=== PATIENT | female | born 1965 | race Two or more races ===

== ENCOUNTER → 2020-01-02 | Outpatient (CLI) | payer MEDICAID ==
[2020-01-02 10:41] LABS: Basophils # (auto) 0.1 10 ^3/uL (0-0.2); Eosinophils # (auto) 0.2 10 ^3/uL (0-0.8); Eosinophils % (auto) 3.9 % (0.0-7.0); Hematocrit 44.5 % (36.0-46.0); Hemoglobin 14.4 g/dL (12.2-16.2); Lymphocytes # (auto) 1.8 10 ^3/uL (0.4-5.4); Lymphocytes % (auto) 29.8 % (10.0-50.0); Mean Corpuscular Hemoglobin 29.2 pg (28.0-32.0); Mean Corpuscular Hgb Conc. 32.4 g/dL (32.0-36.0); Monocytes # (auto) 0.4 10 ^3/uL (0-1.3); Monocytes % (auto) 6.2 % (0.0-12.0); Neutrophils # (auto) 3.5 10 ^3/uL (1.6-8.6); Neutrophils % (auto) 59.1 % (37.0-80.0); Nucleated Red Blood Cells % 0.1 %; Platelet Count (auto) 259 10^3/uL (140-450); Red Blood Cells 4.94 10^6/uL (4.0-5.20); Red Cell Distribution Width 14.3 % (11.8-14.3)
[2020-01-02 10:48] LABS: Urine Bacteria NONE SEEN /hpf (None Seen); Urine Blood Negative /uL (Negative); Urine Specific Gravity 1.016 (1.001-1.035); Urine WBC <1 /hpf (0 - 5)
[2020-01-02 10:52] LABS: Albumin 3.4 g/dL (3.4-5.0); Potassium 4.7 mmol/L (3.5-5.1)
[2020-01-02 10:58] LABS: BUN/Creatinine Ratio 17.1; Bilirubin, Total 0.3 mg/dL (0.2-1.0); Calcium 9.2 mg/dL (8.5-10.1); Total Protein 7.5 g/dL (6.4-8.2)
[2020-01-03 05:10] LABS: RPR Non Reactive (Non Reactive)
== END | disposition home or self-care (01) ==
LOC: LAB 10:03
PROVIDERS: ATTEND Internal Medicine
DX: D68.9 Coagulation defect, unspecified (principal)
CPT/HCPCS: 36415; 80053; 81001; 85025; 86592; 87086

== ENCOUNTER → 2020-05-10 | Outpatient (CLI) | payer MEDICAID ==
[2020-05-10 08:48] LABS: Basophils # (auto) 0.1 10 ^3/uL (0-0.2); Eosinophils # (auto) 0.1 10 ^3/uL (0-0.8); Eosinophils % (auto) 1.8 % (0.0-7.0); Hematocrit 43.8 % (36.0-46.0); Hemoglobin 14.9 g/dL (12.2-16.2); Lymphocytes # (auto) 2.1 10 ^3/uL (0.4-5.4); Lymphocytes % (auto) 28.7 % (10.0-50.0); Mean Corpuscular Hemoglobin 29.8 pg (28.0-32.0); Mean Corpuscular Hgb Conc. 33.9 g/dL (32.0-36.0); Mean Corpuscular Volume 87.8 fL (80.0-100.0); Monocytes # (auto) 0.5 10 ^3/uL (0-1.3); Neutrophils # (auto) 4.5 10 ^3/uL (1.6-8.6); Neutrophils % (auto) 61.5 % (37.0-80.0); Nucleated Red Blood Cells % 0.1 %; Platelet Count (auto) 216 10^3/uL (140-450); Red Blood Cells 4.99 10^6/uL (4.0-5.20); Red Cell Distribution Width 14.9 % (11.8-14.3); White Blood Cell 7.3 10^3/uL (4.4-10.8)
[2020-05-10 09:14] LABS: Potassium 3.9 mmol/L (3.5-5.1)
[2020-05-10 09:23] LABS: Albumin 3.3 g/dL (3.4-5.0); BUN/Creatinine Ratio 17.5; Bilirubin, Direct 0.1 mg/dL (0-0.2); Bilirubin, Total 0.4 mg/dL (0.2-1.0); Calcium 8.6 mg/dL (8.5-10.1); Total Protein 7.2 g/dL (6.4-8.2)
[2020-05-10 09:24] LABS: INR 2.33 (0.9-1.15)
== END | disposition home or self-care (01) ==
LOC: LAB 08:06
PROVIDERS: ATTEND Internal Medicine Gastroenterology
DX: K64.9 Unspecified hemorrhoids (principal); R94.5 Abnormal results of liver function studies
CPT/HCPCS: 36415; 80053; 80076; 82728; 84443; 85025; 85610; 86038

== ENCOUNTER 2020-10-26 15:12 | Inpatient (IN) | payer MEDICAID ==
[~2020-10-26] VITALS: Ht 154.9 cm; Wt 156.0 kg
[2020-10-26] MEDS ORDERED: methylPREDNISolone SOD SUCC 125 MG/2 ML VL IV ONE (15:30)
[2020-10-26] MEDS ORDERED: ASCORBIC ACID 500 MG TAB PO ONE (15:30)
[2020-10-26] MEDS ORDERED: ZINC SULFATE 220mg CAP or TAB PO ONE (15:30)
[2020-10-26] MEDS ORDERED: CHOLECALCIFEROL (VITD3) 2,000 UNIT CAP/TAB PO ONE (15:30)
[2020-10-26 16:34] LABS: Basophils # (auto) 0 10 ^3/uL (0-0.2); Basophils % (auto) 0.8 % (0.0-2.0); Eosinophils # (auto) 0 10 ^3/uL (0-0.8); Eosinophils % (auto) 0.1 % (0.0-7.0); Hematocrit 46.1 % (36.0-46.0); Hemoglobin 15.7 g/dL (12.2-16.2); Lymphocytes # (auto) 1.1 10 ^3/uL (0.4-5.4); Lymphocytes % (auto) 23.6 % (10.0-50.0); Mean Corpuscular Hemoglobin 30.3 pg (28.0-32.0); Mean Corpuscular Hgb Conc. 34.1 g/dL (32.0-36.0); Mean Corpuscular Volume 88.9 fL (80.0-100.0); Monocytes # (auto) 0.6 10 ^3/uL (0-1.3); Monocytes % (auto) 11.6 % (0.0-12.0); Neutrophils # (auto) 3.1 10 ^3/uL (1.6-8.6); Neutrophils % (auto) 63.9 % (37.0-80.0); Nucleated Red Blood Cells % 0.2 %; Red Blood Cells 5.19 10^6/uL (4.0-5.20); Red Cell Distribution Width 14.1 % (11.8-14.3); White Blood Cell 4.8 10^3/uL (4.4-10.8)
[2020-10-26 16:52] LABS: Albumin 3.2 g/dL (3.4-5.0); Anion Gap 7 (5-15); Blood Urea Nitrogen 9 mg/dL (7-18); Calcium 8.4 mg/dL (8.5-10.1); Carbon Dioxide 25 mmol/L (21-32); Chloride 109 mmol/L (98-107); Glucose 104 mg/dL (74-106); Potassium 3.9 mmol/L (3.5-5.1); Sodium 141 mmol/L (136-145)
[2020-10-26 17:01] LABS: Alanine Aminotransferase 95 U/L (13-56); Alkaline Phosphatase 124 U/L (45-117); Aspartate Aminotransferase 65 U/L (15-37); BUN/Creatinine Ratio 11.4; Bilirubin, Total 0.7 mg/dL (0.2-1.0); CRP High Sensitivity 5.13 mg/dL (< 0.3); GFR African American 98 mL/min; GFR Non-African American 81 mL/min; Total Protein 8.1 g/dL (6.4-8.2)
[2020-10-26] MEDS ORDERED: AZITHROMYCIN 500MG/ 250ML 250 ML IV ONE (20:00)
[2020-10-26] MEDS ORDERED: ALUM & MAG HYDROX-SIMETH LIQ(MAALOX) 30 ML PO PRN (20:45)
[2020-10-26] MEDS ORDERED: ONDANSETRON HCL 4 MG/2 ML VIAL IV PRN (20:45)
[2020-10-26] MEDS ORDERED: SODIUM CHLORIDE 0.9% 1,000 ML IV SCH (20:45)
[2020-10-26] MEDS ORDERED: MORPHINE SULF INJ 2 MG/ML SYRINGE 1ML IV PRN ×2 (20:45→23:45)
[2020-10-26] MEDS ORDERED: DOCUSATE SOD 100 MG CAP PO PRN (20:45)
[2020-10-26] MEDS ORDERED: REMDESIVIR PER PHARMACY 0 ML IV SCH (20:45)
[2020-10-26] MEDS ORDERED: ACETAMINOPHEN 500 MG TAB PO PRN (20:45)
[2020-10-26] MEDS ORDERED: HYDROcodone-ACET 5/325MG TAB PO PRN (20:45)
[2020-10-26] MEDS ORDERED: TEMAZEPAM 15 MG CAP PO PRN (22:00)
[2020-10-26] MEDS ORDERED: BUDESONIDE (INHALATION) 180 MCG IH IN SCH (22:00)
[2020-10-26] MEDS ORDERED: ENOXAPARIN SOD 40 MG/0.4 ML SYRINGE SC SCH (22:00)
[2020-10-26] MEDS ORDERED: REMDESIVIR 200 MG in NS 210ml LOADING DOSE ADULT IV ONE (23:00)
[2020-10-26] MEDS ORDERED: NITROGLYCERIN 0.4 MG SL TAB SL PRN (23:45)
[2020-10-26 23:51] VITALS: BP 149/87
[2020-10-26] MEDS: ALBUTEROL SULF HFA 90MCG INH 200DOSE IN SCH (23:59)
[2020-10-27] MEDS: ONDANSETRON HCL 4 MG/2 ML VIAL IV PRN ×3 (00:38→23:48)
[2020-10-27 06:37] LABS: Basophils # (auto) 0 10 ^3/uL (0-0.2); Basophils % (auto) 0.4 % (0.0-2.0); Eosinophils # (auto) 0 10 ^3/uL (0-0.8); Hematocrit 44.6 % (36.0-46.0); Hemoglobin 15.2 g/dL (12.2-16.2); Lymphocytes # (auto) 0.7 10 ^3/uL (0.4-5.4); Lymphocytes % (auto) 16.5 % (10.0-50.0); Mean Corpuscular Hemoglobin 30.3 pg (28.0-32.0); Mean Corpuscular Volume 89.1 fL (80.0-100.0); Monocytes # (auto) 0.2 10 ^3/uL (0-1.3); Neutrophils # (auto) 3.2 10 ^3/uL (1.6-8.6); Neutrophils % (auto) 79.1 % (37.0-80.0); Nucleated Red Blood Cells % 0.1 %; Red Blood Cells 5.01 10^6/uL (4.0-5.20); White Blood Cell 4.1 10^3/uL (4.4-10.8)
[2020-10-27 06:54] LABS: Potassium 4.1 mmol/L (3.5-5.1)
[2020-10-27 06:59] LABS: BUN/Creatinine Ratio 13.9; Calcium 8.4 mg/dL (8.5-10.1)
[2020-10-27] MEDS: ALBUTEROL SULF HFA 90MCG INH 200DOSE IN SCH ×6 (08:13→23:53)
[2020-10-27] MEDS: cefTRIAXone 1GM/50ML D5W 50 ML IV SCH (09:27)
[2020-10-27] MEDS ORDERED: ZINC SULFATE 220mg CAP or TAB PO SCH (10:00)
[2020-10-27] MEDS ORDERED: FLORASTOR (S. BOULARDII) 250 MG CAP PO SCH (10:00)
[2020-10-27] MEDS ORDERED: DexAMETHasone SOD PHOS 10MG/1ML VIAL INJ IV SCH (10:00)
[2020-10-27] MEDS ORDERED: AZITHROMYCIN 500MG/ 250ML 250 ML IV SCH (10:00)
[2020-10-27] MEDS ORDERED: ASCORBIC ACID 1,000 MG TAB PO SCH (10:00)
[2020-10-27] MEDS ORDERED: REMDESIVIR PER PHARMACY 0 ML IV SCH (11:00)
[2020-10-27] MEDS: AZITHROMYCIN 500MG/ 250ML 250 ML IV SCH (11:16)
[2020-10-27] MEDS: DexAMETHasone SOD PHOS 10MG/1ML VIAL INJ IV SCH (11:16)
[2020-10-27] MEDS: ZINC SULFATE 220mg CAP or TAB PO SCH (11:17)
[2020-10-27] MEDS: APIXABAN 5 MG TAB PO SCH ×2 (11:17→22:00)
[2020-10-27] MEDS: CHOLECALCIFEROL (VITD3) 2,000 UNIT CAP/TAB PO SCH (11:17)
[2020-10-27] MEDS: ASCORBIC ACID 500 MG TAB PO SCH ×2 (11:17→22:00)
[2020-10-27] MEDS ORDERED: REMDESIVIR 100mg 100 MG in SODIUM CHL 0.9% 230 ML IV SCH (15:00)
[2020-10-27] MEDS: REMDESIVIR 100mg 100 MG in SODIUM CHL 0.9% 230 ML IV SCH (15:02)
[2020-10-27 22:51] VITALS: BP 126/71
[2020-10-28] MEDS ORDERED: APIX5TAB PO (00:25)
[2020-10-28] MEDS: ACETAMINOPHEN 325 MG TAB PO PRN (00:54)
[2020-10-28 05:00] VITALS: BP 101/63
[2020-10-28] MEDS: ALBUTEROL SULF HFA 90MCG INH 200DOSE IN SCH ×4 (06:00→22:40)
[2020-10-28 06:45] LABS: Albumin 2.7 g/dL (3.4-5.0); Calcium 8.2 mg/dL (8.5-10.1); Potassium 4.1 mmol/L (3.5-5.1)
[2020-10-28 06:49] LABS: BUN/Creatinine Ratio 19.7; Bilirubin, Total 0.4 mg/dL (0.2-1.0); Total Protein 6.7 g/dL (6.4-8.2)
[2020-10-28 07:37] LABS: Urine Bacteria FEW /hpf (None Seen); Urine Blood Negative /uL (Negative); Urine Mucus FEW (None Seen); Urine WBC 5 /hpf (0 - 5)
[2020-10-28 09:00] VITALS: BP 130/68
[2020-10-28] MEDS: DexAMETHasone SOD PHOS 10MG/1ML VIAL INJ IV SCH (09:38)
[2020-10-28] MEDS: CHOLECALCIFEROL (VITD3) 2,000 UNIT CAP/TAB PO SCH (09:39)
[2020-10-28] MEDS: APIXABAN 5 MG TAB PO SCH ×2 (09:39→22:05)
[2020-10-28] MEDS: ZINC SULFATE 220mg CAP or TAB PO SCH (09:39)
[2020-10-28] MEDS: ASCORBIC ACID 500 MG TAB PO SCH ×2 (09:39→22:05)
[2020-10-28 13:00] VITALS: BP 103/64
[2020-10-28] MEDS: AZITHROMYCIN 500MG/ 250ML 250 ML IV SCH (15:05)
[2020-10-28 17:00] VITALS: BP 112/73
[2020-10-28] MEDS: REMDESIVIR 100mg 100 MG in SODIUM CHL 0.9% 230 ML IV SCH (17:13)
[2020-10-28] MEDS: cefTRIAXone 1GM/50ML D5W 50 ML IV SCH (18:30)
[2020-10-28] MEDS ORDERED: TEMAZEPAM 15 MG CAP PO ONE (21:45)
[2020-10-28 22:02] VITALS: BP 116/61
[2020-10-29] VITALS (7 sets, daily range): BP systolic 91–118; BP diastolic 47–62
[2020-10-29] MEDS: ALBUTEROL SULF HFA 90MCG INH 200DOSE IN SCH ×2 (07:51→19:39)
[2020-10-29] MEDS: cefTRIAXone 1GM/50ML D5W 50 ML IV SCH (09:22)
[2020-10-29] MEDS: CHOLECALCIFEROL (VITD3) 2,000 UNIT CAP/TAB PO SCH (09:23)
[2020-10-29] MEDS: ASCORBIC ACID 500 MG TAB PO SCH ×2 (09:23→22:02)
[2020-10-29] MEDS: APIXABAN 5 MG TAB PO SCH ×2 (09:23→22:01)
[2020-10-29] MEDS: ZINC SULFATE 220mg CAP or TAB PO SCH (09:23)
[2020-10-29] MEDS: DexAMETHasone SOD PHOS 10MG/1ML VIAL INJ IV SCH (09:23)
[2020-10-29 10:19] LABS: Albumin 2.6 g/dL (3.4-5.0); Calcium 8.1 mg/dL (8.5-10.1); Potassium 3.8 mmol/L (3.5-5.1)
[2020-10-29] MEDS: AZITHROMYCIN 500MG/ 250ML 250 ML IV SCH (10:20)
[2020-10-29 10:22] LABS: BUN/Creatinine Ratio 21.6; Bilirubin, Total 0.3 mg/dL (0.2-1.0); Total Protein 6.5 g/dL (6.4-8.2)
[2020-10-29] MEDS: REMDESIVIR 100mg 100 MG in SODIUM CHL 0.9% 230 ML IV SCH (15:00)
[2020-10-29] MEDS ORDERED: ALBUTEROL SULF HFA 90MCG INH 200DOSE IN PRN (20:45)
[2020-10-29] MEDS ORDERED: TEMAZEPAM 15 MG CAP PO ONE (21:30)
[2020-10-30] MEDS ORDERED: TEMAZEPAM 15 MG CAP PO PRN (05:00)
[2020-10-30 05:08] VITALS: BP 109/63
[2020-10-30 06:37] LABS: Albumin 2.4 g/dL (3.4-5.0); Calcium 8.1 mg/dL (8.5-10.1); Potassium 4.1 mmol/L (3.5-5.1)
[2020-10-30 06:44] LABS: Bilirubin, Total 0.3 mg/dL (0.2-1.0); Total Protein 6.1 g/dL (6.4-8.2)
[2020-10-30 09:00] VITALS: BP 113/63
[2020-10-30] MEDS: ZINC SULFATE 220mg CAP or TAB PO SCH (09:55)
[2020-10-30] MEDS: DexAMETHasone SOD PHOS 10MG/1ML VIAL INJ IV SCH (09:55)
[2020-10-30] MEDS: cefTRIAXone 1GM/50ML D5W 50 ML IV SCH (09:55)
[2020-10-30] MEDS: ACETAMINOPHEN 325 MG TAB PO PRN (09:56)
[2020-10-30] MEDS: APIXABAN 5 MG TAB PO SCH (09:56)
[2020-10-30] MEDS: ASCORBIC ACID 500 MG TAB PO SCH (09:56)
[2020-10-30] MEDS: CHOLECALCIFEROL (VITD3) 2,000 UNIT CAP/TAB PO SCH (09:56)
[2020-10-30] MEDS ORDERED: ALBUAER3 IN (10:42)
[2020-10-30] MEDS ORDERED: DEX4T PO (10:42)
[2020-10-30] MEDS ORDERED: FAMO20TA10 PO (10:42)
[2020-10-30] MEDS ORDERED: AZIT500T66 PO (10:42)
[2020-10-30] MEDS: AZITHROMYCIN 500MG/ 250ML 250 ML IV SCH (11:37)
[2020-10-30] MEDS: REMDESIVIR 100mg 100 MG in SODIUM CHL 0.9% 230 ML IV SCH (12:24)
[2020-10-30 13:00] VITALS: BP 98/51
== END 2020-10-30 17:15 | disposition home or self-care (01) | DRG 137 ==
LOC: ER 15:15 → TELE-EAST 21:53 → TELE 22:53 → TELE-EAST 10-27 21:50
PROVIDERS: ADMIT Hospitalist; ATTEND Hospitalist
PROC: XW033E5 Introduction of Remdesivir Anti-infective into Peripheral Vein, Percutaneous Approach, New Technology Group 5 (ICD-10-PCS; principal; 2020-10-26)
DX: U07.1 COVID-19 (principal); J96.01 Acute respiratory failure with hypoxia; J12.82 Pneumonia due to coronavirus disease 2019; J98.11 Atelectasis; E66.9 Obesity, unspecified; Z68.44 Body mass index [BMI] 60.0-69.9, adult; Z80.9 Family history of malignant neoplasm, unspecified; Z83.3 Family history of diabetes mellitus; Z86.711 Personal history of pulmonary embolism; Z90.710 Acquired absence of both cervix and uterus
CPT/HCPCS: 36415; 36600; 71045; 80048; 80053; 81001; 82728; 82805; 83605; 83735; 83880; 84484; 85025; 85379; 86141; 87040; 87426; 93005; 93970; 94640; 96365; 96375; G0378; J0696; J1100; J2405

== ENCOUNTER 2021-10-20 19:10 | Emergency (ER) | payer MEDICAID ==
[~2021-10-20] VITALS: Ht 154.9 cm; Wt 173.0 kg
[~2021-10-20 19:10] MED LIST: ALBUAER3 IN; APIX5TAB PO; AZIT500T66 PO; DEX4T PO; FAMO20TA10 PO
[2021-10-20 21:03] LABS: Basophils # (auto) 0.1 10 ^3/uL (0-0.2); Basophils % (auto) 0.9 % (0.0-2.0); Eosinophils # (auto) 0.1 10 ^3/uL (0-0.8); Eosinophils % (auto) 1.7 % (0.0-7.0); Hematocrit 42.7 % (36.0-46.0); Hemoglobin 13.8 g/dL (12.2-16.2); Lymphocytes # (auto) 1.8 10 ^3/uL (0.4-5.4); Mean Corpuscular Hemoglobin 29.5 pg (28.0-32.0); Mean Corpuscular Hgb Conc. 32.3 g/dL (32.0-36.0); Mean Corpuscular Volume 91.2 fL (80.0-100.0); Monocytes # (auto) 0.6 10 ^3/uL (0-1.3); Monocytes % (auto) 9.6 % (0.0-12.0); Neutrophils # (auto) 3.9 10 ^3/uL (1.6-8.6); Neutrophils % (auto) 59.8 % (37.0-80.0); Nucleated Red Blood Cells % 0.1 %; Red Blood Cells 4.68 10^6/uL (4.0-5.20); Red Cell Distribution Width 14.8 % (11.8-14.3); White Blood Cell 6.5 10^3/uL (4.4-10.8)
[2021-10-20 21:23] LABS: BUN/Creatinine Ratio 19.8; Calcium 8.8 mg/dL (8.5-10.1); Potassium 3.9 mmol/L (3.5-5.1)
[2021-10-20 21:32] LABS: Bilirubin, Total 0.3 mg/dL (0.2-1.0); Total Protein 6.6 g/dL (6.4-8.2)
[2021-10-21 03:24] VITALS: BP 144/88
== END 2021-10-21 03:20 | disposition left against medical advice (07) ==
LOC: ER 19:10
DX: M79.605 Pain in left leg (principal); M79.604 Pain in right leg; R53.81 Other malaise; Z90.710 Acquired absence of both cervix and uterus
CPT/HCPCS: 36415; 71045; 80053; 83880; 84484; 85025; 85610; 93005; 93970

== ENCOUNTER → 2022-02-07 | Outpatient (CLI) | payer MEDICAID ==
[2022-02-07 09:23] LABS: Urine Bacteria FEW /hpf (None Seen); Urine Blood Negative /uL (Negative); Urine Mucus FEW (None Seen); Urine Specific Gravity 1.015 (1.001-1.035); Urine WBC 1 /hpf (0 - 5)
[2022-02-07 10:01] LABS: Albumin 3.3 g/dL (3.4-5.0); BUN/Creatinine Ratio 10.3; Bilirubin, Total 0.7 mg/dL (0.2-1.0); Calcium 9.2 mg/dL (8.5-10.1); Total Protein 7.3 g/dL (6.4-8.2)
[2022-02-07 10:11] LABS: Potassium 4.4 mmol/L (3.5-5.1)
== END | disposition home or self-care (01) ==
LOC: LAB 08:52
PROVIDERS: ATTEND Internal Medicine
DX: E66.01 Morbid (severe) obesity due to excess calories (principal); R73.03 Prediabetes
CPT/HCPCS: 36415; 80053; 81001; 82043; 82306; 83036

== ENCOUNTER → 2022-05-09 | Outpatient (CLI) | payer MEDICAID ==
[2022-05-09 12:02] LABS: Potassium 4.4 mmol/L (3.5-5.1)
[2022-05-09 12:25] LABS: Albumin 3.2 g/dL (3.4-5.0); BUN/Creatinine Ratio 19.1; Bilirubin, Total 0.4 mg/dL (0.2-1.0); Calcium 9.2 mg/dL (8.5-10.1); Total Protein 7.2 g/dL (6.4-8.2)
== END | disposition home or self-care (01) ==
LOC: LAB 10:26
PROVIDERS: ATTEND Internal Medicine
DX: I10 Essential (primary) hypertension (principal); E78.5 Hyperlipidemia, unspecified; R73.03 Prediabetes
CPT/HCPCS: 36415; 80053; 80061; 82306; 83036; 84443

== ENCOUNTER → 2023-05-21 | Outpatient (CLI) | payer MEDICAID ==
[2023-05-21 10:14] LABS: INR 1.02 (0.9-1.15); Prothrombin Time 10.7 sec (9.3-11.8)
[2023-05-21 10:24] LABS: % Iron Saturation 28.2 % (15-50); Alanine Aminotransferase 22 U/L (7-40); Albumin 4.4 g/dL (3.2-4.8); Alkaline Phosphatase 139 U/L (46-116); Anion Gap 7 (5-15); Aspartate Aminotransferase 24 U/L (13-40); BUN/Creatinine Ratio 14.6 (10.0-20.0); Bilirubin, Direct 0.2 mg/dL (<0.3); Blood Urea Nitrogen 12 mg/dL (9-23); Calcium 9.8 mg/dL (8.5-10.1); Carbon Dioxide 27 mmol/L (20-30); Chloride 107 mmol/L (98-107); Cholesterol 189 mg/dL (< 200); Glucose 87 mg/dL (74-106); Potassium 4.1 mmol/L (3.5-5.1); Sodium 141 mmol/L (136-145); Triglycerides 106 mg/dL (< 150)
[2023-05-21 10:25] LABS: Bilirubin, Total 0.7 mg/dL (0.2-1.0); Phosphorus 3.9 mg/dL (2.4-5.1); Pre Albumin 14.5 md/dL (10.0-40.0); Total Protein 7.1 g/dL (5.7-8.2)
[2023-05-21 10:29] LABS: Ferritin 126.9 ng/mL (10-291); Free T3 2.95 pg/mL (2.3-4.2)
[2023-05-21 10:30] LABS: Folate (Folic Acid) 18.82 ng/mL (>5.38)
[2023-05-21 10:31] LABS: Free T4 (Free Thyroxine) 1.05 ng/dL (0.89-1.76)
[2023-05-21 10:32] LABS: Basophils # (auto) 0 10 ^3/uL (0-0.2); Basophils % (auto) 0.6 % (0.0-2.0); Eosinophils # (auto) 0.1 10 ^3/uL (0-0.8); Eosinophils % (auto) 1.7 % (0.0-7.0); Hematocrit 47.2 % (36.0-46.0); Hemoglobin 15.7 g/dL (12.2-16.2); Lymphocytes % (auto) 28.3 % (10.0-50.0); Mean Corpuscular Hemoglobin 30.6 pg (28.0-32.0); Mean Corpuscular Hgb Conc. 33.3 g/dL (32.0-36.0); Monocytes # (auto) 0.3 10 ^3/uL (0-1.3); Monocytes % (auto) 4.6 % (0.0-12.0); Neutrophils # (auto) 4.6 10 ^3/uL (1.6-8.6); Neutrophils % (auto) 64.8 % (37.0-80.0); Red Blood Cells 5.13 10^6/uL (4.0-5.20); Red Cell Distribution Width 13.4 % (11.8-14.3); White Blood Cell 7.1 10^3/uL (4.4-10.8)
[2023-05-21 10:46] LABS: Magnesium 2.1 mg/dL (1.6-2.6)
[2023-05-23 13:06] LABS: Zinc 77 ug/dL (44-115)
== END | disposition home or self-care (01) ==
LOC: LAB 09:15
DX: K91.2 Postsurgical malabsorption, not elsewhere classified (principal)
CPT/HCPCS: 36415; 80048; 80076; 82040; 82306; 82465; 82607; 82728; 82746; 83036; 83540; 83550; 83735; 84100; 84207; 84425; 84439; 84443; 84478; 84481; 84630; 85025; 85610; 85730

== ENCOUNTER → 2023-08-02 | Outpatient (CLI) | payer MEDICAID ==
[2023-08-02 09:33] LABS: Basophils # (auto) 0.1 10 ^3/uL (0-0.2); Eosinophils # (auto) 0.1 10 ^3/uL (0-0.8); Eosinophils % (auto) 1.2 % (0.0-7.0); Hemoglobin 14.9 g/dL (12.2-16.2); Lymphocytes # (auto) 2.2 10 ^3/uL (0.4-5.4); Lymphocytes % (auto) 33.6 % (10.0-50.0); Mean Corpuscular Hemoglobin 30.9 pg (28.0-32.0); Mean Corpuscular Hgb Conc. 33.9 g/dL (32.0-36.0); Mean Corpuscular Volume 91.2 fL (80.0-100.0); Monocytes # (auto) 0.4 10 ^3/uL (0-1.3); Monocytes % (auto) 6.2 % (0.0-12.0); Neutrophils # (auto) 3.8 10 ^3/uL (1.6-8.6); Nucleated Red Blood Cells % 0.1 %; Red Blood Cells 4.83 10^6/uL (4.0-5.20); Red Cell Distribution Width 13.4 % (11.8-14.3); White Blood Cell 6.7 10^3/uL (4.4-10.8)
[2023-08-02 10:19] LABS: Alanine Aminotransferase 18 U/L (7-40); Albumin 3.9 g/dL (3.2-4.8); Alkaline Phosphatase 135 U/L (46-116); Anion Gap 7 (5-15); Aspartate Aminotransferase 21 U/L (13-40); BUN/Creatinine Ratio 10.8 (10.0-20.0); Blood Urea Nitrogen 9 mg/dL (9-23); Calcium 9.6 mg/dL (8.5-10.1); Carbon Dioxide 26 mmol/L (20-30); Chloride 108 mmol/L (98-107); Cholesterol 157 mg/dL (< 200); Glucose 80 mg/dL (74-106); HDL Cholesterol 45 mg/dL (40-59); LDL Cholesterol 96 mg/dL (< 100); Sodium 141 mmol/L (136-145); Triglycerides 106 mg/dL (< 150)
[2023-08-02 10:20] LABS: Bilirubin, Total 0.8 mg/dL (0.2-1.0); Total Protein 6.3 g/dL (5.7-8.2)
== END | disposition home or self-care (01) ==
LOC: LAB 09:18
PROVIDERS: ATTEND Internal Medicine
DX: I10 Essential (primary) hypertension (principal); E55.9 Vitamin D deficiency, unspecified
CPT/HCPCS: 36415; 80053; 80061; 82306; 85025

== ENCOUNTER → 2024-03-27 | Outpatient (CLI) | payer MEDICAID ==
[~2024-03-27] MED LIST changes: -ALBUAER3 IN; +ATOR20TA50 PO; -AZIT500T66 PO; -DEX4T PO; -FAMO20TA10 PO; +SEMA4INJ SC
[2024-03-27 10:07] LABS: Alanine Aminotransferase 18 U/L (7-40); Anion Gap 6 (5-15); Aspartate Aminotransferase 21 U/L (13-40); BUN/Creatinine Ratio 18.1 (10.0-20.0); Blood Urea Nitrogen 15 mg/dL (9-23); Calcium 9.9 mg/dL (8.7-10.4); Carbon Dioxide 26 mmol/L (20-31); Glucose 91 mg/dL (74-106); Potassium 4.1 mmol/L (3.5-5.1); Sodium 141 mmol/L (136-145); Triglycerides 111 mg/dL (< 150)
[2024-03-27 10:08] LABS: Bilirubin, Total 0.6 mg/dL (0.2-1.0); Total Protein 6.4 g/dL (5.7-8.2)
[2024-03-27 10:12] LABS: Basophils # (auto) 0.1 10 ^3/uL (0-0.2); Basophils % (auto) 0.8 % (0.0-2.0); Eosinophils # (auto) 0.1 10 ^3/uL (0-0.8); Eosinophils % (auto) 1.7 % (0.0-7.0); Hematocrit 44.9 % (36.0-46.0); Hemoglobin 15.1 g/dL (12.2-16.2); Lymphocytes # (auto) 1.8 10 ^3/uL (0.4-5.4); Lymphocytes % (auto) 29.2 % (10.0-50.0); Mean Corpuscular Hgb Conc. 33.5 g/dL (32.0-36.0); Mean Corpuscular Volume 92.6 fL (80.0-100.0); Monocytes # (auto) 0.3 10 ^3/uL (0-1.3); Monocytes % (auto) 4.9 % (0.0-12.0); Neutrophils % (auto) 63.4 % (37.0-80.0); Nucleated Red Blood Cells % 0.1 %; Platelet Count (auto) 198 10^3/uL (140-450); Red Blood Cells 4.85 10^6/uL (4.0-5.20); Red Cell Distribution Width 13.4 % (11.8-14.3); White Blood Cell 6.3 10^3/uL (4.4-10.8)
[2024-03-27 10:20] LABS: Alkaline Phosphatase 136 U/L (46-116); Chloride 109 mmol/L (98-107); Cholesterol 202 mg/dL (< 200); HDL Cholesterol 65 mg/dL (40-59); LDL Cholesterol 132 mg/dL (< 100)
== END | disposition home or self-care (01) ==
LOC: LAB 09:06
PROVIDERS: ATTEND Internal Medicine
DX: E78.5 Hyperlipidemia, unspecified (principal); E55.9 Vitamin D deficiency, unspecified; R73.03 Prediabetes
CPT/HCPCS: 36415; 80053; 80061; 82306; 83036; 84439; 84443; 85025

== ENCOUNTER 2024-08-17 20:21 | Emergency (ER) | payer MEDICAID ==
[~2024-08-17] VITALS: Ht 154.9 cm; Wt 123.6 kg
--- NOTE | 2024-08-17 22:00 | ED.PDOC ---
History of Present Illness HPI Comments 58-year-old female presents with a chief complaint of muscle pain s/p mechanical fall. Patient had a mechanical fall at home and landed on her right side. Patient is now presenting with right wrist, right shoulder, and right knee pain from the fall. Patient has no deformities and rates her pain a 7/10. Patient denies any headache or loss of consciousness from the fall. Chief Complaint: Fall Injury Time Seen by MD: 21:30 Primary Care Provider: HALEY Fairchild Notes: Medications, Allergies Allergies: Coded Allergies: Flu Virus Vaccine (Verified Allergy, Unknown, 08/16/23) Morphine (Verified Allergy, Unknown, 08/16/23) Home Meds Reported Medications Atorvastatin Calcium (ATORVASTATIN CALCIUM) 20 Mg Tab, 1 TAB PO DAILY, TAB 08/17/23 Semaglutide (Ozempic) 4 Mg/3 Ml Inj, 1 MG SC QWEEKLY, INJ 08/17/23 Apixaban Base (ELIQUIS) 5 Mg Tab, 5 MG PO BID 10/28/20 Information Source: Patient Mode of Arrival: Ambulatory Severity: Moderate Timing: Hours Duration: Since onset Prehospital treatment: None Past Medical History PAST MEDICAL HISTORY: PE Surgical History: Hernia Repair, Hysterectomy SAP MANAGER History: No Pertinent SAP MANAGER History Family History Family History: Family hx of DM, Family hx of Cancer Social History Smoker: Non-Smoker Alcohol: Denies ETOH Use Drugs: Denies Drug Use Lives In: Home Constitutional: denies: chills, diaphoresis, fatigue, fever, malaise, sweats, weakness, others EENTM: denies: blurred vision, double vision, ear bleeding, ear discharge, ear drainage, ear pain, ear ringing, eye pain, eye redness, hearing loss, mouth pain, mouth swelling, nasal discharge, nose bleeding, nose congestion, nose pain, photophobia, tearing, throat pain, throat swelling, voice changes, others Respiratory: denies: cough, hemoptysis, orthopnea, SOB at rest, shortness of breath, SOB with excertion, stridor, wheezing, others Cardiovascular: denies: chest pain, dizzy spells, diaphoresis, Dyspnea on exertion, edema, irregular heart beat, left arm pain, lightheadedness, palpitations, PND, syncope, others Gastrointestinal: denies: abdomen distended, abdominal pain, blood streaked bowels, constipated, diarrhea, dysphagia, difficulty swallowing, hematemesis, melena, nausea, poor appetite, poor fluid intake, rectal bleeding, rectal pain, vomiting, others Genitourinary: denies: abnormal vagina bleeding, burning, dyspareunia, dysuria, flank pain, frequency, hematuria, incontinence, pain, , vagina discharge, urgency, others Neurological: denies: dizziness, fainting, headache, left sided numbness, left sided weakness, numbness, paresthesia, pre-existing deficit, right sided numbness, right sided weakness, seizure, speech problems, tingling, tremors, weakness, others Musculoskeletal: reports: muscle pain; denies: back pain, gout, joint pain, joint swelling, muscle stiffness, neck pain, others Integumetry: denies: bruises, change in color, change in hair/nails, dryness, laceration, lesions, lumps, rash, wounds, others Allergic/Immunocompromised: denies: Difficulty Healing, Frequent Infections, Hives, Itching, others Hematologic/Lymphatic: denies: anemia, blood clots, easy bleeding, easy bruising, swollen glands, others Endocrine: denies: excessive hunger, excessive sweating, excessive thirst, excessive urination, flushing, intolerance to cold, intolerance to heat, unexplained weight gain, unexplained weight loss, others Psychiatric: denies: anxiety, bipolar disorder, depression, hopeless, panic disorder, schizophrenia, sleepless, suicidal, others All Other Systems: Reviewed and Negative Physical Exam General Appearance: No Apparent Distress, Normal HEENT: Normal ENT Inspection, Pharynx Normal, TMs Normal Neck: Full Range of Motion, Non-Tender, Normal, Normal Inspection Respiratory: Chest Non-Tender, Lungs Clear, No Accessory Muscle Use, No Respiratory Distress, Normal Breath Sounds Cardiovascular: No Edema, No JVD, No Murmur, No Gallop, Normal Peripheral Pulses, Regular Rate/Rhythm Breast Exam: Deferred Gastrointestinal: No Organomegaly, Non Tender, No Pulsatile Mass, Normal Bowel Sounds, Soft Genitalia: Deferred Pelvic: Deferred Rectal: Deferred Extremities: No calf tenderness, Normal capillary refill, Normal inspection, Normal range of motion, Non-tender, No pedal edema Musculoskeletal : Apperance: Normal Neurologic: Alert, real estate agency principal II-XII nml as Tested, No Motor Deficits, Normal Affect, Normal Mood, No Sensory Deficits Cerebellar Function: Normal Reflexes: Normal Skin: Dry, Normal Color, Warm Lymphatic: No Adenopathy Was a procedure done? Was a procedure done?: No Differential Dx Considerations may include: Fracture, contusion, sprain X-Ray, Labs, Meds, VS Vital Signs Date Time Temp Pulse Resp B/P (MAP) Pulse Ox O2 Delivery O2 Flow Rate FiO2 08/17/24 21:10 97.7 67 17 148/73 (98) 96 97.7 Time of 1ST Reevaluation: 22:00 Reevaluation 1ST: Unchanged Patient Education/Counseling: Diagnosis, Treatment Family Education/Counseling: No Family Present Departure 1 Departure Time of Disposition: 22:56 (Patient had a ground level fall. My judgment after reviewing the images patient has not no serious injury. We will discharge patient home with likely muscle strain) Impression: Primary Impression: Muscle strain Additional Impression: Fall Qualified Codes: W19.XXXA - Unspecified fall, initial encounter Disposition: HOME / SELF CARE / HOMELESS Condition: Stable Additional Instructions: Your x-rays were benign today. You likely we will have some bruises. You were prescribed pain medication. Please take as directed. If your symptoms worsen or if any other concerns please return to the emergency room. e-Prescriptions Hydrocodone-Acetaminophen (Hydrocodone Bitartrate/AC 5-325 mg) 1 Tab Tab 1 TAB PO QID PRN for 4 Days, #16 TAB Prov: MODESTO PRATHER MD 08/17/24 Discharged With: Dynamometer Repairer Critical Care Note Critical Care Time?: No Stability Stability form required: No Heart Score Heart Score: Heart Score Response (Comments) Value History N/A 0 EKG N/A 0 Age N/A 0 Risk Factors N/A 0 Troponin N/A 0 Total 0 I personally scribed for MODESTO PRATHER MD ([email or web address]) on 08/17/24 at 22:00. Electronically submitted by Ze Morales ([email or web address]). MODESTO PRATHER MD August 17, 2024 22:00
--- NOTE | 2024-08-17 22:17 | DVH ---
EXAM: CT HEAD WITHOUT CONTRAST INDICATION: fall TECHNIQUE: CT of the head without intravenous contrast. Radiation Dose Information: CT Dose: CTDI volume is 61.14 mGy. Dose-length product is 979.96 mGy*cm The dose indicators for CT are the volume Computed Tomography (CT) Dose Index (CTDIvol) and the Dose Length Product (DLP), and are measured in units of mGy and mGy-cm, respectively. These indicators are not patient dose, but values generated from the CT scanner acquisition factors. The report includes radiation exposure data for exposures received during this examination. COMPARISON: None FINDINGS: There is no evidence of acute intracranial hemorrhage, extra-axial collection, mass effect, midline s hift, herniation or hydrocephalus. The ventricles, sulci and cisterns are age appropriate. The dunn-white differentiation is intact. Patchy periventricular and subcortical white matter hypoattenuation is nonspecific but may be related to small vessel ischemic disease. The visualized paranasal sinuses and mastoid air cells are clear. The surrounding soft tissues and osseous structures are unremarkable. IMPRESSION: 1. No acute intracranial abnormality. HS:Y
--- NOTE | 2024-08-17 22:21 | DVH ---
CLINICAL INDICATION: fall TECHNIQUE: XY R KNEE 3V XRAY Comparison: None FINDINGS: No evidence of joint effusion, fracture or dislocation. Moderate medial joint space narrowing. Margin al osteophytes in medial and lateral joint compartment as well as osteophytes at the poles of the pat rosalino. IMPRESSION: No evidence of fracture or dislocation. Tricompartmental OA.
--- NOTE | 2024-08-17 22:31 | DVH ---
CLINICAL INDICATION: fall TECHNIQUE: XY R SHOULDER 2+ VIEW XRAY Comparison: None FINDINGS/IMPRESSION: : There is no evidence of acute fracture or dislocation. Moderate degenerative change and joint space narrowing of the acromioclavicular joint and mild right glenohumeral arthrosis. Visualized portions of the lungs are clear. Overlying soft tissues are intact.
--- NOTE | 2024-08-17 22:33 | DVH ---
CLINICAL HISTORY: fall TECHNIQUE: 3 views of the right wrist were obtained. WID: COMPARISON: None FINDINGS: Normal mineralization alignment. Mild 1st CMC joint osteoarthritis. No acute fracture. Well corticat ed osseous densities project at the volar aspect of the right wrist which may be sequelae of remote t rauma. Overlying soft tissues are intact. IMPRESSION: 1. No acute fracture or traumatic malalignment. 2. Mild 1st CMC joint osteoarthritis. 3. Well Corticated osseous densities project at the volar aspect of the right wrist which may be sequ elae of remote trauma.
--- NOTE | 2024-08-17 22:36 | DVH ---
CLINICAL INDICATION: fall TECHNIQUE: XY R FOREARM XRAY Comparison: None FINDINGS/IMPRESSION: : There is no evidence of acute fracture or dislocation. Tiny chronic osseous densities project at the volar aspect of the right wrist. Overlying soft tissues are intact. No radiopaque foreign body.
[2024-08-17] MEDS ORDERED: HYDR-4902 PO (22:58)
[2024-08-18] VITALS: BP 131/71; PULSE 62; RESP 12; TEMP 98.2; O2SAT 97
[2024-08-18] MEDS: HYDROcodone-ACET 5/325MG TAB PO ONE (00:14)
== END 2024-08-18 00:21 | disposition home or self-care (01) ==
LOC: ER 20:21
DX: T14.8XXA Other injury of unspecified body region, initial encounter (principal); R42 Dizziness and giddiness; Z98.890 Other specified postprocedural states; Z90.710 Acquired absence of both cervix and uterus; Z88.5 Allergy status to narcotic agent; Z79.899 Other long term (current) drug therapy; W19.XXXA Unspecified fall, initial encounter; Y93.89 Activity, other specified; Y92.009 Unspecified place in unspecified non-institutional (private) residence as the place of occurrence of the external cause; Y99.8 Other external cause status
CPT/HCPCS: 70450; 73030; 73090; 73110; 73562